=== PATIENT | female | born 2000 | race Caucasian/White ===

== ENCOUNTER 2020-05-19 21:21 | Outpatient (REF) | payer BC, SELFPAY ==
[2020-05-23 14:31] LABS: SARS-CoV-2 RNA Undetected (Undetected); SARS-CoV-2 Specimen Source Nasopharynx
== END 2020-05-19 21:41 ==
LOC: NCHCN 21:21
PROVIDERS: PCP Nurse Practitioner Family; Visit Provider Nurse Practitioner Family
DX: Z11.59 Encounter for screening for other viral diseases (principal)
CPT/HCPCS: U0003

== ENCOUNTER 2022-03-03 10:54 | Outpatient (REF) | payer BC, SELFPAY ==
--- NOTE | 2022-03-03 09:45 | PAPFT_PTH ---
PATIENT: Gwyn Robertson LOC: [facility] U#:[id number] AGE/SX: 21/F ROOM: RE03/03/[address]: Carly Khan, PhD INTER COM INSTALLER : [id number] BED: DIS: 03/03/2022 SPEC #: [id number] RECD: 03/03/22 12:56 STATUS: LOYDA REHenrry #: [id number] YANELI: 03/03/22 09:[address]: Carly Khan DEPT: [facility] Cytology RECD BY: Randi Shearer Tissues: 1 - CX/ENDOCX FOR PAP SMEARS Procedures: PAP THIN PREP/[facility] Screening Comments: [id number]
== END 2022-03-03 10:55 | disposition home or self-care (01) ==
LOC: LBN 10:54
PROVIDERS: PCP Nurse Practitioner; Visit Provider Nurse Practitioner
DX: Z12.4 Encounter for screening for malignant neoplasm of cervix (principal)
CPT/HCPCS: 88142